=== PATIENT | male | born 1985 | race African-American/Black ===

== ENCOUNTER 2016-12-02 19:26 | Emergency (ER) | payer OTHER ==
[2016-12-02 20:19] LABS: Basophils # (auto) 0 uL; Basophils % (auto) 0.4 % (0.0-2.0); DEFINITIVE VIEW TRANSMISSION; Eosinophils # (auto) 0.1 uL; Eosinophils % (auto) 1.1 % (0.0-7.0); Hematocrit 40.5 % (41.0-53.0); Hemoglobin 12.7 g/dL (13.5-17.5); Lymphocytes # (auto) 4.1 uL; Mean Corpuscular Hemoglobin 21.4 pg (28.0-32.0); Mean Corpuscular Hgb Conc. 31.4 g/dL (32.0-36.0); Mean Corpuscular Volume 68.3 fL (80.0-100.0); Mean Platelet Volume 9.1 fL (7.4-10.4); Monocytes % (auto) 11.7 % (0.0-12.0); Neutrophils # (auto) 3.1 uL; Neutrophils % (auto) 37.8 % (37.0-80.0); Platelet Count (auto) 326 10^3/uL (140-450); Red Cell Distribution Width 15.2 % (11.6-16.0); White Blood Cell 8.3 10^3/uL (4.4-10.8)
[2016-12-02 20:31] LABS: INR 0.93 (0.9-1.15); Partial Thromboplastin Time 28.7 sec (22.64-33.71)
[2016-12-02 20:44] LABS: Albumin 3.9 g/dL (3.4-5.0); Anion Gap 8 (5-15); Aspartate Aminotransferase 25 U/L (15-37); BUN/Creatinine Ratio 19.2; Blood Urea Nitrogen 19 mg/dL (7-18); Calcium 8.7 mg/dL (8.5-10.1); Carbon Dioxide 25 mmol/L (21-32); Chloride 108 mmol/L (98-107); GFR African American 113 mL/min; GFR Non-African American 94 mL/min; Glucose 79 mg/dL (74-106); Potassium 4.1 mmol/L (3.5-5.1); Sodium 141 mmol/L (136-145)
[2016-12-02 20:49] LABS: Alkaline Phosphatase 87 U/L (45-117); Bilirubin, Total 0.3 mg/dL (0.2-1.0); Total Protein 8.1 g/dL (6.4-8.2)
[2016-12-02 20:58] LABS: B-Type Natriuretic Peptide 0.68 pg/mL (0-100)
[2016-12-02 20:59] LABS: Temperature: 22.4 C (20.0-25.0)
[2016-12-03] MEDS ORDERED: NIFEdipine 10 MG CAP PO ONE (02:00)
[2016-12-03] MEDS ORDERED: ENALAPRILAT 1.25 MG/ML-1ML VIAL IV ONE (02:00)
[2016-12-03 02:35] VITALS: BP 181/110
== END 2016-12-03 03:35 | disposition home or self-care (01) ==
LOC: ER 21:50 → OVERFLOW 21:51 → UNDOADMIN 21:51 → ER 12-03 03:35
DX: I10 Essential (primary) hypertension (principal); F17.210 Nicotine dependence, cigarettes, uncomplicated; F12.10 Cannabis abuse, uncomplicated; R06.02 Shortness of breath; Z91.19 Patient's noncompliance with other medical treatment and regimen
CPT/HCPCS: 71010; 83735; 93005; 96374